=== PATIENT | male | born 1970 | race Caucasian/White ===

== ENCOUNTER → 2017-12-10 | Outpatient (CLI) | payer OTHER ==
--- NOTE | 2017-12-10 15:10 | US ---
EXAMINATION TYPE: US abdomen complete DATE OF EXAM: 12/10/2017 COMPARISON: NONE CLINICAL HISTORY: R10.9 Abdominal Pain. epigastric pain; larger habitus EXAM MEASUREMENTS: Liver Length: 17.4 cm Gallbladder Wall: 0.2 cm CBD: 0.4 cm Spleen: 12.5 cm Right Kidney: 13.0x x5.7 x 5.1 cm Left Kidney: 12.0 x 6.3 x 5.0 cm Pancreas: visualized portions wnl, tail gassed out Liver: upper limits in size Gallbladder: wnl Evidence for sonographic Urban's sign: no CBD: wnl Spleen: wnl Right Kidney: wnl Left Kidney: 1.9cm peripelvic cyst or pyramid at the mid to lower pole Upper IVC: wnl Abd Aorta: wnl The liver is homogenous. The intrahepatic portion of the IVC and proximal abdominal aorta are within normal limits. There is no evidence of cholelithiasis. Common bile duct is unremarkable. The visu alized portions of the pancreas are homogenous. The spleen is unremarkable. Kidneys are symmetric a nd free of hydronephrosis. IMPRESSION: Simple cyst left kidney. Otherwise unremarkable study.
== END | disposition home or self-care (01) ==
LOC: RADUSWWP 13:57
PROVIDERS: ATTEND Family Medicine
DX: N28.1 Cyst of kidney, acquired (principal)
CPT/HCPCS: 76700

== ENCOUNTER 2021-03-27 16:48 | Observation (INO) | payer OTHER ==
--- NOTE | 2021-03-27 17:01 | ED ---
General Adult HPI - General Chief complaint: Chest Pain Stated complaint: chest pain, rapid pulse Time Seen by Provider: 03/27/21 16:54 Source: patient Mode of arrival: ambulatory Limitations: no limitations - History of Present Illness Initial comments: Patient presents to the ED with his friend for evaluation. Patient states that he was about 2.5 hours into his workout today when he developed rapid heart palpitations, lightheadedness, dyspnea and nausea. Patient states that he has not worked out in about 7 months, and today was his first day back. Patient states that about 45 minutes ago, he developed a "squeezing" pain in the left side of his chest with some radiation to his left jaw. Patient states that this pain has currently improved, but has not completely resolved. Patient denies trauma or injury, fever or chills, headache, focal numbness/weakness/neuro deficit, back pain, pleuritic pain, cough or cold symptoms, syncope, vomitin g/diarrhea, abdominal pain, leg or calf swelling or pain, or any other symptoms or complaints. - Related Data Home Medications Medication Instructions Recorded Confirmed Ascorbic Acid [Vitamin C] 500 mg PO DAILY 03/27/21 03/27/21 Cholecalciferol [Vitamin D3 (25 25 mcg PO BID 03/27/21 03/27/21 Mcg = 1000 Iu)] Multivitamins, Thera [Multivitamin 1 tab PO BID 03/27/21 03/27/21 (formulary)] Zinc 50 mg PO BID 03/27/21 03/27/21 Allergies Allergy/AdvReac Type Severity Reaction Status Date / Time No Known Allergies Allergy Verified 03/27/21 18:56 Review of Systems ROS Statement: Those systems with pertinent positive or pertinent negative responses have been documented in the HPI. ROS Other: All systems not noted in ROS Statement are negative. Past Medical History Past Medical History: No Reported History History of Any Multi-Drug Resistant Organisms: None Reported Past Surgical History: Orthopedic Surgery Past Psychological History: No Psychological Hx Reported Smoking Status: Never smoker Past Alcohol Use History: None Reported Past Drug Use History: None Reported - Past Family History Father Family Medical History: Myocardial Infarction (MS) General Exam Limitations: no limitations General appearance: alert, in no apparent distress Head exam: Present: atraumatic, normocephalic Eye exam: Present: normal appearance, EOMI ENT exam: Present: mucous membranes moist Neck exam: Present: other (Trachea is in midline) Respiratory exam: Present: normal lung sounds bilaterally. Absent: respiratory distress, wheezes, rales, rhonchi, stridor, chest wall tenderness Cardiovascular Exam: Present: normal rhythm, tachycardia, normal heart sounds, other (Normal radial pulses bilaterally) GI/Abdominal exam: Present: soft, other (Obese abdomen). Absent: tenderness, guarding Extremities exam: Present: other (Negative Homans sign bilaterally). Absent: tenderness, pedal edema, calf tenderness Neurological exam: Present: alert, oriented X3. Absent: motor sensory deficit Psychiatric exam: Present: anxious Skin exam: Present: warm, dry, intact, normal color Course Vital Signs 03/27/21 03/27/21 16:49 18:04 Temperature 98.4 F Pulse Rate 102 H 93 Respiratory 20 18 Rate Blood Pressure 187/72 136/82 O2 Sat by Pulse 99 95 Oximetry - Reevaluation(s) Reevaluation #1: 03/27/21 18:26 Patient states that his chest pain has resolved while in the ED, and he states that his symptoms have now improved. Patient remains alert and breathing comfortably with a normal room air oxygen saturation. Patient remains in a sinus rhythm on the secured entrance monitor. Patient is aware of his test results, and he agrees with hospital admission at this time. 03/27/21 19:09 Case, H&P, test results and ED management were discussed with Dr. Mendez. She accepts hospital admission. She agrees with cardiology consultation. She has no further recommendations at this time. EKG Findings - EKG Comments: EKG Findings:: Normal sinus rhythm, ventricular rate of 98 bpm, no ectopy, normal UT and QRS intervals, normal QT interval, normal axis, no ST or T-wave abnormality Medical Decision Making - Medical Decision Making Patient's ED EKG is fairly unremarkable, and his initial troponin is negative. Given the patient's story (exertional chest pain with associated symptoms), and risk factors of obesity and family history of MS, I have recommended to the patient that he be admitted to the hospital for serial troponins, cardiac monitoring and cardiology evaluation. Patient agrees. Dr. Mendez has accepted hospital admission. - Lab Data Result diagrams: 03/27/21 17:30 03/27/21 17:30 Lab Results 03/27/21 03/27/21 03/27/21 Range/Units 17:30 17:30 17:30 WBC 12.3 H (3.8-10.6) k/uL RBC 4.77 (4.30-5.90) m/uL Hgb 15.7 (13.0-17.5) gm/dL Hct 45.2 (39.0-53.0) % MCV 94.7 (80.0-100.0) fL MCH 32.9 (25.0-35.0) pg MCHC 34.8 (31.0-37.0) g/dL RDW 12.5 (11.5-15.5) % Plt Count 260 (150-450) k/uL MPV 8.0 Neutrophils % 76 % Lymphocytes % 14 % Monocytes % 7 % Eosinophils % 0 % Basophils % 0 % Neutrophils # 9.4 H (1.3-7.7) k/uL Lymphocytes # 1.7 (1.0-4.8) k/uL Monocytes # 0.8 (0-1.0) k/uL Eosinophils # 0.0 (0-0.7) k/uL Basophils # 0.0 (0-0.2) k/uL PT 10.6 (9.0-12.0) sec INR 1.0 (<1.2) APTT 23.2 (22.0-30.0) sec Sodium 135 L (137-145) mmol/L Potassium 4.3 (3.5-5.1) mmol/L Chloride 104 (98-107) mmol/L Carbon Dioxide 18 L (22-30) mmol/L Anion Gap 13 mmol/L BUN 22 H (9-20) mg/dL Creatinine 1.17 (0.66-1.25) mg/dL Est GFR (CKD-EPI)AfAm 84 (>60 ml/min/1.73 sqM) Est GFR (CKD-EPI)NonAf 72 (>60 ml/min/1.73 sqM) Glucose 87 (74-99) mg/dL Calcium 9.8 (8.4-10.2) mg/dL Magnesium 1.9 (1.6-2.3) mg/dL Total Bilirubin 0.8 (0.2-1.3) mg/dL AST 44 (17-59) U/L ALT 34 (4-49) U/L Alkaline Phosphatase 64 (38-126) U/L Troponin I (0.000-0.034) ng/mL NT-Pro-B Natriuret Pep pg/mL Total Protein 7.9 (6.3-8.2) g/dL Albumin 4.8 (3.5-5.0) g/dL 03/27/21 03/27/21 Range/Units 17:30 17:30 WBC (3.8-10.6) k/uL RBC (4.30-5.90) m/uL Hgb (13.0-17.5) gm/dL Hct (39.0-53.0) % MCV (80.0-100.0) fL MCH (25.0-35.0) pg MCHC (31.0-37.0) g/dL RDW (11.5-15.5) % Plt Count (150-450) k/uL MPV Neutrophils % % Lymphocytes % % Monocytes % % Eosinophils % % Basophils % % Neutrophils # (1.3-7.7) k/uL Lymphocytes # (1.0-4.8) k/uL Monocytes # (0-1.0) k/uL Eosinophils # (0-0.7) k/uL Basophils # (0-0.2) k/uL PT (9.0-12.0) sec INR (<1.2) APTT (22.0-30.0) sec Sodium (137-145) mmol/L Potassium (3.5-5.1) mmol/L Chloride (98-107) mmol/L Carbon Dioxide (22-30) mmol/L Anion Gap mmol/L BUN (9-20) mg/dL Creatinine (0.66-1.25) mg/dL Est GFR (CKD-EPI)AfAm (>60 ml/min/1.73 sqM) Est GFR (CKD-EPI)NonAf (>60 ml/min/1.73 sqM) Glucose (74-99) mg/dL Calcium (8.4-10.2) mg/dL Magnesium (1.6-2.3) mg/dL Total Bilirubin (0.2-1.3) mg/dL AST (17-59) U/L ALT (4-49) U/L Alkaline Phosphatase (38-126) U/L Troponin I <0.012 (0.000-0.034) ng/mL NT-Pro-B Natriuret Pep 67 pg/mL Total Protein (6.3-8.2) g/dL Albumin (3.5-5.0) g/dL - Radiology Data Radiology results: report reviewed (Chest x-ray: No active cardiopulmonary disease) Disposition Clinical Impression: Chest pain, Palpitations Disposition: ADMITTED IP TO THIS [facility] Condition: Stable Is patient prescribed a controlled substance at d/c from ED?: No Referrals: Ankur Neely DO [Primary Care Provider] - 1-2 days Time of Disposition: 19:09
[2021-03-27] MEDS ORDERED: NITROGLYCERIN SL TABS 0.4 MG TAB SUBLINGUAL STA (17:21)
[2021-03-27] MEDS ORDERED: ASPIRIN 81 MG PO STA (17:21)
[2021-03-27] MEDS ORDERED: SODIUM CHLORIDE 0.9% 1,000 ML IV STA (17:21)
[2021-03-27 17:38] LABS: Basophils % (A) 0 %; Eosinophils % (A) 0 %; HCT 45.2 % (39.0-53.0); HGB 15.7 gm/dL (13.0-17.5); Lymphocytes # (A) 1.7 k/uL (1.0-4.8); Lymphocytes % (A) 14 %; MCH 32.9 pg (25.0-35.0); MCHC 34.8 g/dL (31.0-37.0); MCV 94.7 fL (80.0-100.0); Monocytes # (A) 0.8 k/uL (0-1.0); Monocytes % (A) 7 %; Neutrophils # (A) 9.4 k/uL (1.3-7.7); Neutrophils % (A) 76 %; Platelet Count 260 k/uL (150-450); RBC 4.77 m/uL (4.30-5.90); RDW 12.5 % (11.5-15.5); WBC 12.3 k/uL (3.8-10.6)
[2021-03-27 17:46] LABS: Albumin 4.8 g/dL (3.5-5.0); Calcium 9.8 mg/dL (8.4-10.2); Magnesium 1.9 mg/dL (1.6-2.3); Total Bilirubin 0.8 mg/dL (0.2-1.3); Total Protein 7.9 g/dL (6.3-8.2)
[2021-03-27 18:01] LABS: Potassium 4.3 mmol/L (3.5-5.1)
--- NOTE | 2021-03-27 18:03 | XR ---
EXAMINATION TYPE: XR chest 1V portable DATE OF EXAM: 03/27/2021 COMPARISON: Today HISTORY: Chest pain TECHNIQUE: Single view FINDINGS: Heart and mediastinum are normal. Lungs are clear of infiltrate. There is no heart failure. There are no hilar masses. The bony thorax is intact. There are chest leads. IMPRESSION: No active cardiopulmonary disease. No change compared to exam this morning.
[2021-03-27 18:04] LABS: Partial Thromboplastin Time 23.2 sec (22.0-30.0); Prothrombin Time 10.6 sec (9.0-12.0)
[2021-03-27] MEDS ORDERED: ALPRAZolam 0.25 MG TAB PO PRN (20:07)
[2021-03-27] MEDS ORDERED: ACETAMINOPHEN TAB 500 MG TAB PO PRN (20:07)
[2021-03-27] MEDS: MULTIVITAMINS, THERA 1 EACH TAB PO SCH (20:44)
[2021-03-27] MEDS: CHOLECALCIFEROL 25 MCG (1000 IU) TABLET PO SCH (20:44)
--- NOTE | 2021-03-27 21:47 | HP ---
HISTORY AND PHYSICAL DATE OF SERVICE: 03/27/2021 CHIEF COMPLAINT: Chest pain. HISTORY OF PRESENT ILLNESS: This 50-year-old gentleman with a past medical history of DJD and no other significant medical issues, being followed by Dr. Ankur Neely in the outpatient setting, had chest pain about 2 years ago. The patient had complete workup with Dr. Echevarria, which was negative, but however today the patient had episodes of short lasting left-sided jaw and facial pain. Subsequently followed by left-sided chest pain and the patient also had some rapid heartbeat and palpitations and dyspnea during the workout and the patient came to [facility] and was admitted to the hospital for further evaluation. Pain was reported as squeezing. EKG showed tachycardia. White count is 12.3, sodium is 135. Otherwise, there is no history of fever, rigors. No history of headache, loss of consciousness, seizures. EKG showed sinus tachycardia with ST-T changes and diffuse nonspecific ST-T changes and chest x-ray showed no acute abnormality. There is no history of fever, rigors, chills at this time. PAST MEDICAL HISTORY: History of chest pain and degenerative joint disease as mentioned earlier. MEDICATIONS: Home medications are: Multivitamin, vitamin D and ascorbic acid. ALLERGIES: None. FAMILY HISTORY: History of myocardial infarction in the family. SOCIAL HISTORY: No history of smoking, no history of alcohol intake. REVIEW OF SYSTEMS: ENT: No diminished vision. No diminished hearing. CARDIOVASCULAR as mentioned earlier. RESPIRATORY: As mentioned earlier. GI: No nausea or vomiting. no dysuria. NERVOUS SYSTEM: No numbness, weakness. ALLERGY/IMMUNOLOGY: No asthma or hayfever. MUSCULOSKELETAL: As mentioned earlier. HEMATOLOGY/ONCOLOGY: No history of anemia. ENDOCRINE: No history of diabetes or hypothyroidism. CONSTITUTIONAL: As mentioned earlier. DERMATOLOGY: Negative. RHEUMATOLOGY: Negative. PSYCHIATRIC: As mentioned earlier. PHYSICAL EXAM: General appearance: The patient is alert and oriented times three. Pulse 102, blood pressure 197/72, respirations 20, temperature 98.4, pulse ox 99 percent on room air. HEENT: Conjunctivae normal. NECK: No JVD. CARDIOVASCULAR: S1, S2 muffled. RESPIRATORY: Breath sounds diminished in the bases. No rhonchi. No crackles. ABDOMEN: Soft, obese, nontender. No mass palpable. LEGS: No edema. No swelling. NERVOUS SYSTEM: Higher functions as mentioned. Moves all four extremities. LYMPHATICS: No lymph nodes palpable in the neck, axillae or groin. SKIN: No ulcers, rashes or bleeding. JOINTS: No active deforming arthropathy. LABS: WBC 12.3 and sodium 130, potassium 4.3. ASSESSMENT: 1. Chest pain for evaluation possible unstable angina. Rule out coronary artery disease. 2. Hyponatremia, mild. 3. Increased WBC. 4. History of chest pain, previous. 5. History of degenerative joint disease. 6. Obesity with body mass of 42.5. 7. FULL CODE. RECOMMENDATIONS AND DISCUSSION: This 50-year-old gentleman who presented with multiple complex medical issues, we will monitor the patient closely, continue the current medications. Covid 19 test has been requested. Otherwise, resume the home medications and cardiology consult to rule out myocardial infarction. Unstable angina protocol. Possible stress test in the morning. Prognosis guarded. Further recommendations to follow. A copy of dictation being forwarded to Dr. Ankur Neely, who is the primary physician. MMYIMIL / IJN: [id number] /
[2021-03-27] MEDS: ZINC SULFATE 220 MG CAP PO SCH (21:51)
[2021-03-27 22:48] LABS: Appearance,Urine Clear (Clear); Bilirubin,Urine Negative (Negative); Blood,Urine Negative (Negative); Color,Urine Light Yellow; Glucose,Urine (UA) Negative (Negative); Ketones,Urine 2+ (Negative); Leukocyte Esterase,Urine Negative (Negative); Nitrite,Urine Negative (Negative); Protein,Urine Negative (Negative); Specific Gravity,Urine 1.013 (1.001-1.035); Urobilinogen,Urine <2.0 mg/dL (<2.0)
[2021-03-28 06:50] VITALS: BP 137/86; PULSE 69; RESP 20; TEMP 97.9
[2021-03-28] MEDS ORDERED: PANTOPRAZOLE 40 MG TABLET PO SCH (07:30)
[2021-03-28] MEDS ORDERED: ASCORBIC ACID 500 MG TAB PO SCH (09:00)
[2021-03-28 09:10] LABS: Basophils # (A) 0.03 X 10*3/uL (0.00-0.10); Basophils % (A) 0.3 %; Eosinophils # (A) 0.07 X 10*3/uL (0.04-0.35); Eosinophils % (A) 0.7 %; HCT 43.1 % (39.6-50.0); Lymphocytes # (A) 2.82 X 10*3/uL (0.90-5.00); Lymphocytes % (A) 29.1 %; MCH 31.4 pg (27.0-32.0); MCHC 32.5 g/dL (32.0-37.0); MCV 96.6 fL (80.0-97.0); Mean Platelet Volume 10.7 fL (9.5-12.2); Monocytes # (A) 1.19 X 10*3/uL (0.20-1.00); Monocytes % (A) 12.3 %; Neutrophils # (A) 5.55 X 10*3/uL (1.80-7.70); Neutrophils % (A) 57.3 %; Platelet Count 232 X 10*3/uL (140-440); RBC 4.46 X 10*6/uL (4.40-5.60); RDW 12.5 % (11.5-14.5); WBC 9.69 X 10*3/uL (4.50-10.00)
[2021-03-28] MEDS: ZINC SULFATE 220 MG CAP PO SCH (09:14)
[2021-03-28] MEDS: MULTIVITAMINS, THERA 1 EACH TAB PO SCH (09:14)
[2021-03-28] MEDS: CHOLECALCIFEROL 25 MCG (1000 IU) TABLET PO SCH (09:14)
[2021-03-28 10:10] LABS: Albumin 4.4 g/dL (3.80-4.90); Anion Gap 12.6 mmol/L (4.00-12.00); BUN/Creat Ratio 18.89 Ratio (12.00-20.00); Calcium 8.8 mg/dL (8.7-10.3); Carbon Dioxide 19.4 mmol/L (21.6-31.8); Chol/HDL Ratio 4.77; Globulin 2.2 g/dL (1.6-3.3); LDL Cholesterol,Calculated 138.6 mg/dL (0.0-131.0); Non-African American GFR(CKD) 99.2 (60.0-200.0); Total Bilirubin 0.5 mg/dL (0.3-1.2); Total Protein 6.6 g/dL (6.2-8.2); VLDL Calculation 27.4 mg/dL (5.00-40.00)
[2021-03-28] MEDS: ATORVASTATIN 10 MG TAB PO SCH ×2 (12:24→12:41)
--- NOTE | 2021-03-28 13:10 | CONS ---
CONSULTATION Mr. Belle is a 50-year-old male with history of hyperlipidemia, who presented with symptoms of chest discomfort. The patient has been walking regularly without any discomfort. He has no exertional chest discomfort or dyspnea, but yesterday he was lifting weight for the first time in a year and has gone to the gym. Subsequently felt that his heart rate is going too fast and has persisted to be tachycardic, had chest discomfort going to the jaw. The jaw pain lasted for about 30 seconds, the chest pain for about 45 seconds and subsequently resolved. He had mild dyspnea. It took a while for his heart rate to settle down. He had no associated syncope. He has been doing well cardiac-ortez since his last visit to our office in September of 2019. He has underwent a stress echocardiogram at that time that revealed no evidence of stress- induced ischemia. The patient denies any PND, orthopnea, or peripheral edema. No syncope. His coronary risk factors are remarkable for hyperlipidemia. He is nonsmoker, nondiabetic. MEDICATIONS: Include zinc, multivitamin, vitamin D, and vitamin C. REVIEW OF SYSTEMS: Respiratory system: He has no documented history of asthma, emphysema or bronchitis. GI system: No recent GI bleeding, no peptic ulcer disease. system: No dysuria or hematuria. NERVOUS SYSTEM: No stroke or seizure. PHYSICAL EXAMINATION: He is a 50-year-old male, alert, oriented, in no apparent distress. Blood pressure 137/80 with a heart rate in the 60s. HEAD: Normocephalic. Eyes sclerae anicteric. NECK: Good carotid upstroke. No bruit. No jugular venous distention. LUNGS: Clear to auscultation. HEART: Regular rate and rhythm S1, S2. No S3. No S4. No murmur or rub. ABDOMEN: Soft. Nontender. Positive bowel sounds. No megaly. EXTREMITIES: No edema. Intact distal pulses. LAB DATA: Hemoglobin 15.7, platelet count 260. BUN and creatinine 22 and 1.17. Troponin less than 0.012 for 3 samples. NT proBNP of 67. EKG revealed a sinus mechanism, normal axis and intervals with no acute ST-segment changes. Chest x-ray shows no acute infiltrate. IMPRESSION: 1. Chest discomfort, atypical for ischemic heart disease probably noncardiac. 2. Episode of tachycardia, most likely related to the exercise the patient has done yesterday and he has not been doing that routinely. 3. History of hyperlipidemia. Patient declined lipid-lowering treatment in the past. RECOMMENDATION: From the cardiac standpoint, I will proceed in obtaining a stress echocardiogram and a transthoracic echo. If there is no evidence of abnormality, then no further cardiac workup will be needed. Thank you for this consult. We will follow with you. CURT / SKYLER: [id number] /
--- NOTE | 2021-03-28 14:20 | ECHOS ---
STRESS ECHOCARDIOGRAM DATE OF SERVICE: 03/28/21 INDICATIONS: Chest pain BASELINE HEART RATE: 85 BASELINE BLOOD PRESSURE: 135/91 MAXIMUM HEART RATE: 163 MAXIMUM BLOOD PRESSURE: 185/62 85% MPHR: 145 100% MPHR: 170 METS: 4.09 MAXIMUM STAGE REACHED: III TOTAL EXERCISE TIME: 7:49 CLINICAL INFORMATION: Chest pain RESULTS: Baseline rhythm is sinus mechanism, rate of 85, normal axis. Poor R wave progression. Baseline blood pressure 135/91 mmHg. Patient exercised on Poli protocol for 7 minutes 49 seconds reaching peak rate 163 beats per minute which is equal to 96% maximum predicted heart rate. Peak blood pressure 162/55 mmHg. Test was terminated because of fatigue. There was no chest pain. Electrocardiograph monitoring revealed no evidence of diagnostic ischemic ST deviation. FINDINGS: Baseline echocardiogram revealed normal wall thickening and motion. At peak exercise, there was normal wall motion augmentation with no hypokinesis or dyskinesis. CONCLUSION: 1. Average exercise tolerance with normal echocardiograph response to exercise. 2. Normal stress echocardiogram with no evidence of stress-induced ischemia. MMODL / IJN: [id number] /
--- NOTE | 2021-03-29 13:54 | P.DS ---
Providers Date of admission: 03/27/21 19:15 Expected date of discharge: 03/28/21 Attending physician: Gloria Mendez MD Consults: 03/27/21 19:16 Consult Physician Urgent Consulting Provider: Gonzales Eagle Consult Reason/Comments: chest pain Do you want consulting provider notified?: Yes Primary care physician: Ankur Neely [facility] Course: Final diagnosis Chest pain for evaluation possible unstable angina, ruled out acute coronary event Hyponatremia, mild Increased white blood count history of chest pain, previous history of degenerative joint disease Obesity with body mass index of 42.5 Full code Discharge disposition Patient is being discharged in a stable condition with guarded prognosis to home. Patient will follow-up with Dr. Tamara Neely upon discharge. Patient will follow-up with cardiology outpatient. Patient will continue on Lipitor 10 mg daily and Protonix daily as well. Total time taken is greater than 35 minutes. Hospital course This is a 50-year-old male who was recently admitted with left-sided jaw and facial pain and subsequent left side chest pain and was being closely monitored. Patient was evaluated by cardiology and underwent stress echo showing an average exercise tolerance with normal echocardiographic response to exercise along with normal stress echocardiogram with no evidence of stressed induced ischemia. Patient was started on Lipitor 10 mg and will continue along with Protonix 40 mg daily and instructed to follow-up with primary care provider Dr. Tamara Neely in the outpatient setting upon discharge. Currently no reports of chest pain, shortness of breath, or palpitations. Patient is afebrile. No reports of nausea or vomiting and patient is tolerating diet. On exam vital signs are stable. Cardio S1, S2 are muffled. Respiratory shows diminished breath sounds at the bases with no wheezing or rhonchi noted. Abdomen is soft and nontender. Nervous system shows no focal deficits. Please refer to medication reconciliation sheet for a list of medications. Patient Condition at Discharge: Stable Plan - Discharge Summary Discharge Rx Participant: No New Discharge Prescriptions: New Pantoprazole [Protonix] 40 mg PO AC-BRKFST #30 tab Atorvastatin [Lipitor] 10 mg PO DAILY #30 tab Continue Zinc 50 mg PO BID Cholecalciferol [Vitamin D3 (25 Mcg = 1000 Iu)] 25 mcg PO BID Ascorbic Acid [Vitamin C] 500 mg PO DAILY Multivitamins, Thera [Multivitamin (formulary)] 1 tab PO BID Discharge Medication List Ascorbic Acid [Vitamin C] 500 mg PO DAILY 03/27/21 [History] Cholecalciferol [Vitamin D3 (25 Mcg = 1000 Iu)] 25 mcg PO BID 03/27/21 [History] Multivitamins, Thera [Multivitamin (formulary)] 1 tab PO BID 03/27/21 [History] Zinc 50 mg PO BID 03/27/21 [History] Atorvastatin [Lipitor] 10 mg PO DAILY #30 tab 03/28/21 [Rx] Pantoprazole [Protonix] 40 mg PO AC-BRKFST #30 tab 03/28/21 [Rx] Follow up Appointment(s)/Referral(s): Ankur Neely DO [Primary Care Provider] - 1-2 days Patient Instructions/Handouts: Cardiac Stress Test (DC) Activity/Diet/Wound Care/Special Instructions: Activity Limited until follow-up Follow-up with primary care provider on discharge Continue taking medications as prescribed Follow heart healthy low-cholesterol diet Discharge Disposition: HOME SELF-CARE
--- NOTE | 2021-03-29 15:56 | ECHOF ---
Referral Reason: MEASUREMENTS -------- HEIGHT: 180.3 cm WEIGHT: 138.3 kg BP: RVIDd: 2.8 cm (< 3.3) IVSd: 1.0 cm (0.6 - 1.1) LVIDd: 4.9 cm (3.9 - 5.3) LVPWd: 1.4 cm (0.6 - 1.1) IVSs: 2.1 cm LVIDs: 2.7 cm LVPWs: 1.7 cm LAESV Index (A-L): 16.03 ml/m Ao Diam: 3.6 cm (2.0 - 3.7) AV Cusp: 2.5 cm (1.5 - 2.6) LA Diam: 2.7 cm (2.7 - 3.8) MV EXCURSION: 16.594 mm (> 18.000) MV EF SLOPE: 126 mm/s (70 - 150) EPSS: 0.6 cm MV E Reggie: 0.81 m/s MV DecT: 181 ms MV A Reggie: 0.42 m/s MV E/A Ratio: 1.96 RAP: 5.00 mmHg RVSP: 17.74 mmHg FINDINGS -------- Sinus rhythm. This was a technically adequate study. The left ventricular size is normal. There is mild concentric left ventricular hypertrophy. Overa ll left ventricular systolic function is normal with, an EF between 55 - 60 %. The diastolic fillin g pattern is normal for the age of the patient 12.57. The right ventricle is normal in size. Normal LA size by volume 22+/-6 ml/m2. The right atrial size is normal. The aortic valve is trileaflet, and appears structurally normal. No aortic stenosis or regurgitation. The mitral valve is normal. There is trace mitral regurgitation. The tricuspid valve appears structurally normal. Mild tricuspid regurgitation present. Right vent ricular systolic pressure is normal at < 35 mmHg. The pulmonic valve was not well visualized. The aortic root size is normal. The inferior vena cava is mildly dilated. There is no pericardial effusion. CONCLUSIONS -------- 1. There is mild concentric left ventricular hypertrophy. 2. Overall left ventricular systolic function is normal with, an EF between 55 - 60 %. 3. The diastolic filling pattern is normal for the age of the patient 12.57 4. Normal LA size by volume 22+/-6 ml/m2. 5. There is trace mitral regurgitation. 6. Mild tricuspid regurgitation present. 7. There is no pericardial effusion. PEST MANAGEMENT SUPERVISOR: Kaitlin Da Silva RDCS
== END 2021-03-28 14:23 | disposition home or self-care (01) ==
LOC: EC 16:48 → 6NMEDSUR 19:15
PROVIDERS: ADMIT Internal Medicine; ATTEND Internal Medicine
DX: R07.89 Other chest pain (principal); R00.2 Palpitations; R06.00 Dyspnea, unspecified; R68.84 Jaw pain; Z20.822 Contact with and (suspected) exposure to COVID-19; E78.5 Hyperlipidemia, unspecified; R51.9 Headache, unspecified; E87.1 Hypo-osmolality and hyponatremia; D72.829 Elevated white blood cell count, unspecified; M19.90 Unspecified osteoarthritis, unspecified site; E66.9 Obesity, unspecified; Z68.41 Body mass index [BMI] 40.0-44.9, adult; Z82.49 Family history of ischemic heart disease and other diseases of the circulatory system
CPT/HCPCS: 96361 ×2; 96360; 99285; 36415; 93005; 93306; 93351; 83880; 80061; 80053 ×2; 83735; 84484; 85025 ×2; 85610; 85730; 81003; 87635; 71045; G0378 ×2

== ENCOUNTER 2021-08-28 07:18 | Observation (INO) | payer BC, OTHER ==
[2021-08-28] MEDS ORDERED: SODIUM CHLORIDE 0.9% 500 ML 500 ML IV ONE (07:44)
[2021-08-28 07:49] LABS: Glucose,Whole Blood 114 mg/dL (75-99)
[2021-08-28 07:54] LABS: Basophils % (A) 0 %; Eosinophils # (A) 0.2 k/uL (0-0.7); Eosinophils % (A) 2 %; HCT 48.6 % (39.0-53.0); HGB 15.9 gm/dL (13.0-17.5); Lymphocytes # (A) 1.5 k/uL (1.0-4.8); Lymphocytes % (A) 10 %; MCH 32.2 pg (25.0-35.0); MCHC 32.8 g/dL (31.0-37.0); MCV 98.3 fL (80.0-100.0); Mean Platelet Volume 7.8; Monocytes # (A) 0.8 k/uL (0-1.0); Monocytes % (A) 6 %; Neutrophils # (A) 11.5 k/uL (1.3-7.7); Neutrophils % (A) 81 %; Platelet Count 247 k/uL (150-450); RBC 4.95 m/uL (4.30-5.90); RDW 12.2 % (11.5-15.5); WBC 14.3 k/uL (3.8-10.6)
--- NOTE | 2021-08-28 08:02 | ED ---
General Adult HPI - General Chief complaint: Syncope Stated complaint: Syncope Time Seen by Provider: 08/28/21 07:30 Source: patient, RN notes reviewed, old records reviewed Mode of arrival: wheelchair Limitations: no limitations - History of Present Illness Initial comments: 51-year-old male presenting after syncopal episode. Patient states he was in the bathroom, using the toilet, began feeling lightheaded followed by nausea and diaphoresis. He stood and passed out momentarily. He states that yesterday evening he did have a moderate frontal headache which she describes as a tension headache. This was gradual in onset. He denies any preceding symptoms otherwise. Patient states he did have a left lateral chest pressure, During this episode. - Related Data Home Medications Medication Instructions Recorded Confirmed Ascorbic Acid [Vitamin C] 1,000 mg PO BID 03/27/21 08/28/21 Cholecalciferol [Vitamin D3 (25 25 mcg PO BID 03/27/21 08/28/21 Mcg = 1000 Iu)] Multivitamins, Thera [Multivitamin 1 tab PO BID 03/27/21 08/28/21 (formulary)] Zinc 50 mg PO BID 03/27/21 08/28/21 Aspirin EC [Ecotrin] 650 mg PO ONCE PRN 08/28/21 08/28/21 Allergies Allergy/AdvReac Type Severity Reaction Status Date / Time No Known Allergies Allergy Verified 08/28/21 08:37 Review of Systems ROS Statement: Those systems with pertinent positive or pertinent negative responses have been documented in the HPI. ROS Other: All systems not noted in ROS Statement are negative. Past Medical History Past Medical History: No Reported History History of Any Multi-Drug Resistant Organisms: None Reported Past Surgical History: Orthopedic Surgery Additional Past Anesthesia/Blood Transfusion Reaction / Comment(s): unknown Past Psychological History: No Psychological Hx Reported Smoking Status: Never smoker Past Alcohol Use History: None Reported Past Drug Use History: None Reported - Past Family History Father Family Medical History: Myocardial Infarction ([place]) General Exam Limitations: no limitations General appearance: alert, in no apparent distress Head exam: Present: atraumatic, normocephalic Eye exam: Present: normal appearance, PERRL ENT exam: Present: mucous membranes dry Neck exam: Present: normal inspection. Absent: tenderness, meningismus Respiratory exam: Present: normal lung sounds bilaterally. Absent: respiratory distress, wheezes Cardiovascular Exam: Present: regular rate, normal rhythm GI/Abdominal exam: Present: soft. Absent: distended, tenderness, guarding Extremities exam: Present: normal inspection, normal capillary refill. Absent: pedal edema Neurological exam: Present: alert, oriented X3, CN II-XII intact. Absent: motor sensory deficit Psychiatric exam: Present: normal affect, normal mood Skin exam: Present: warm, dry, intact. Absent: cyanosis, diaphoretic Course Vital Signs 08/28/21 08/28/21 07:29 07:51 Temperature 98.2 F Pulse Rate 77 72 Respiratory 18 18 Rate Blood Pressure 106/66 111/75 O2 Sat by Pulse 98 96 Oximetry EKG Findings - EKG Comments: EKG Findings:: Sinus rhythm, rate 67, nonspecific T-wave abnormality in aVL and V2. No ST segment elevation. IN interval 194, QRS duration 100, QTC 401 Medical Decision Making - Medical Decision Making 51-year-old male presenting for evaluation of syncope, and left lateral chest pressure. Patient had moderate headache yesterday. Head CT was performed this is negative for intracranial hemorrhage or mass effect. Chest x-ray will show mild cardiomegaly no other acute findings. Patient has a leukocytosis 14.3, no other infectious complaints. D-dimer is negative. Initial troponin is negative. Patient does have some subtle EKG changes including T-wave inversion in aVL and T-wave abnormality in V2. No ST segment changes. He will be observed overnight for possible syncopal episode and this episode of chest pressure. Case discussed with Dr. Mendez who will admit. Cardiology placed on consult. - Lab Data Result diagrams: 08/28/21 07:35 08/28/21 07:35 Lab Results 08/28/21 08/28/21 08/28/21 Range/Units 07:35 07:35 07:35 WBC 14.3 H (3.8-10.6) k/uL RBC 4.95 (4.30-5.90) m/uL Hgb 15.9 (13.0-17.5) gm/dL Hct 48.6 (39.0-53.0) % MCV 98.3 (80.0-100.0) fL MCH 32.2 (25.0-35.0) pg MCHC 32.8 (31.0-37.0) g/dL RDW 12.2 (11.5-15.5) % Plt Count 247 (150-450) k/uL MPV 7.8 Neutrophils % 81 % Lymphocytes % 10 % Monocytes % 6 % Eosinophils % 2 % Basophils % 0 % Neutrophils # 11.5 H (1.3-7.7) k/uL Lymphocytes # 1.5 (1.0-4.8) k/uL Monocytes # 0.8 (0-1.0) k/uL Eosinophils # 0.2 (0-0.7) k/uL Basophils # 0.0 (0-0.2) k/uL PT 10.4 (9.0-12.0) sec INR 0.9 (<1.2) APTT 22.4 (22.0-30.0) sec D-Dimer 0.30 (<0.60) mg/L FEU Sodium 139 (137-145) mmol/L Potassium 5.0 (3.5-5.1) mmol/L Chloride 107 (98-107) mmol/L Carbon Dioxide 22 (22-30) mmol/L Anion Gap 10 mmol/L BUN 19 (9-20) mg/dL Creatinine 0.98 (0.66-1.25) mg/dL Est GFR (CKD-EPI)AfAm >90 (>60 ml/min/1.73 sqM) Est GFR (CKD-EPI)NonAf 90 (>60 ml/min/1.73 sqM) Glucose 115 H (74-99) mg/dL POC Glucose (mg/dL) (75-99) mg/dL POC Glu Roller Embosser ID Calcium 9.2 (8.4-10.2) mg/dL Magnesium 2.0 (1.6-2.3) mg/dL Total Bilirubin 0.9 (0.2-1.3) mg/dL AST 35 (17-59) U/L ALT 25 (4-49) U/L Alkaline Phosphatase 66 (38-126) U/L Troponin I (0.000-0.034) ng/mL Total Protein 7.7 (6.3-8.2) g/dL Albumin 4.5 (3.5-5.0) g/dL Coronavirus (PCR) (Not Detectd) 02/20/22 02/20/22 02/20/22 Range/Units 07:35 07:37 07:44 WBC (3.8-10.6) k/uL RBC (4.30-5.90) m/uL Hgb (13.0-17.5) gm/dL Hct (39.0-53.0) % MCV (80.0-100.0) fL MCH (25.0-35.0) pg MCHC (31.0-37.0) g/dL RDW (11.5-15.5) % Plt Count (150-450) k/uL MPV Neutrophils % % Lymphocytes % % Monocytes % % Eosinophils % % Basophils % % Neutrophils # (1.3-7.7) k/uL Lymphocytes # (1.0-4.8) k/uL Monocytes # (0-1.0) k/uL Eosinophils # (0-0.7) k/uL Basophils # (0-0.2) k/uL PT (9.0-12.0) sec INR (<1.2) APTT (22.0-30.0) sec D-Dimer (<0.60) mg/L FEU Sodium (137-145) mmol/L Potassium (3.5-5.1) mmol/L Chloride (98-107) mmol/L Carbon Dioxide (22-30) mmol/L Anion Gap mmol/L BUN (9-20) mg/dL Creatinine (0.66-1.25) mg/dL Est GFR (CKD-EPI)AfAm (>60 ml/min/1.73 sqM) Est GFR (CKD-EPI)NonAf (>60 ml/min/1.73 sqM) Glucose (74-99) mg/dL POC Glucose (mg/dL) 114 H (75-99) mg/dL POC Glu Roller Embosser ID Woo, Avelina Calcium (8.4-10.2) mg/dL Magnesium (1.6-2.3) mg/dL Total Bilirubin (0.2-1.3) mg/dL AST (17-59) U/L ALT (4-49) U/L Alkaline Phosphatase (38-126) U/L Troponin I 0.014 (0.000-0.034) ng/mL Total Protein (6.3-8.2) g/dL Albumin (3.5-5.0) g/dL Coronavirus (PCR) Not Detected (Not Detectd) Disposition Clinical Impression: Chest pain, Syncope Disposition: ADMITTED IP TO THIS HOSP Condition: Stable Is patient prescribed a controlled substance at d/c from ED?: No Decision to Admit Reason: Admit from EC Decision Date: 08/28/21 Decision Time: 08:49
[2021-08-28 08:05] LABS: ALT 25 U/L (4-49); AST 35 U/L (17-59); African American GFR (CKD) >90 (>60 ml/min/1.73 sqM); Albumin 4.5 g/dL (3.5-5.0); Alkaline Phosphatase 66 U/L (38-126); Anion Gap 10 mmol/L; Blood Urea Nitrogen 19 mg/dL (9-20); Calcium 9.2 mg/dL (8.4-10.2); Carbon Dioxide 22 mmol/L (22-30); Chloride 107 mmol/L (98-107); Glucose 115 mg/dL (74-99); Non-African American GFR(CKD) 90 (>60 ml/min/1.73 sqM); Sodium 139 mmol/L (137-145); Total Bilirubin 0.9 mg/dL (0.2-1.3); Total Protein 7.7 g/dL (6.3-8.2)
--- NOTE | 2021-08-28 08:06 | CT ---
EXAMINATION TYPE: CT brain wo con DATE OF EXAM: 08/28/2021 COMPARISON: None HISTORY: 51-year-old male syncope, ROBBINS TECHNIQUE: Examination was done in axial plane without intravenous contrast. Coronal and sagittal r econstructions performed. CT DLP: 1173.4 mGycm Automated exposure control for dose reduction was used. FINDINGS: There is no evidence of acute intracranial hemorrhage, acute ischemic changes, mass, mass-effect, or extra-axial fluid collection. There is no effacement of cerebral sulci or basal subarachnoid cister ns. There is no hydrocephalus. There is no midline shift. Gilliam-white matter distinction is preserv ed. Partially empty sella. 3 mm of benign cerebellar tonsillar ectopia incidentally noted. Moderate mucosal thickening ethmoid air cells. Mild lobulated mucosal thickening left maxillary sinus . Leftward nasal septal deviation. Orbits and globes appear intact. Mastoid air cells are well pneuma tized. IMPRESSION: No acute intracranial abnormality seen. Moderate chronic ethmoid sinus disease.
[2021-08-28 08:12] LABS: INR 0.9 (<1.2); Partial Thromboplastin Time 22.4 sec (22.0-30.0); Prothrombin Time 10.4 sec (9.0-12.0)
--- NOTE | 2021-08-28 08:13 | XR ---
EXAMINATION TYPE: XR chest 2V DATE OF EXAM: 08/28/2021 COMPARISON: 03/27/2021 HISTORY: 51-year-old male syncope TECHNIQUE: PA and lateral views FINDINGS: Heart borderline enlarged. No consolidation or pleural effusion. Bony vasculature within normal limit s. IMPRESSION: Borderline heart size. Otherwise, no acute process seen.
[2021-08-28] MEDS ORDERED: ASPIRIN 325 MG TAB PO STA (08:40)
[2021-08-28] MEDS ORDERED: ONDANSETRON 4 MG/2 ML VIAL IVP PRN (08:43)
[2021-08-28] MEDS ORDERED: ACETAMINOPHEN TAB 325 MG TAB PO PRN (08:43)
[2021-08-28] MEDS ORDERED: NALOXONE 0.4 MG/ML 1 ML VIAL IV PRN (08:43)
[2021-08-28] MEDS: SODIUM CHLORIDE 0.9% 1,000 ML IV SCH ×2 (09:26→22:59)
--- NOTE | 2021-08-28 10:43 | P.HPIM ---
History of Present Illness This is a pleasant 51 years old male with no significant past medical history. Presents with syncope./Presyncope Patient has some tension headache behind his height last night and he took aspirin which helped him to ease down however in the morning he was going to the restroom he felt hot and nausea and while she was trying get up from the chair he felt nauseated, sweating and his eye blacked out but he still could hear voices, next thing he was on the floor with difficulty getting up for about 5-8 minutes as patient describes. Also he had some little chest pressure on the left side which is resolved now. He denies any diarrhea or vomiting or abdominal pain, no weakness or numbness, no vertigo, no blurred vision or slurred speech. No dysuria or urgency or other urinary abnormality. He denies smoking, alcohol or illicit drugs. Labs showing mild leukocytosis of 14.3, rest of labs including CBC, BMP and liver enzymes are unremarkable. D-dimer normal at 0.3. Glucose is elevated 115, Liver enzymes not elevated Coronavirus nondetected. EKG showing normal sinus rhythm at 67 with QTC of [address]-T changes, Chest x-ray: No acute process. CT of the brain: No acute process In the emergency room patient started on normal saline 75 mL/h and he got aspirin 325 mg. Patient admitted with consult the cardiology Past Medical History Past Medical History: No Reported History History of Any Multi-Drug Resistant Organisms: None Reported Past Surgical History: Orthopedic Surgery Additional Past Anesthesia/Blood Transfusion Reaction / Comment(s): unknown Past Psychological History: No Psychological Hx Reported Smoking Status: Never smoker Past Alcohol Use History: None Reported Past Drug Use History: None Reported - Past Family History Father Family Medical History: Myocardial Infarction ([place]) Medications and Allergies Home Medications Medication Instructions Recorded Confirmed Type Ascorbic Acid [Vitamin C] 1,000 mg PO BID 03/27/21 08/28/21 History Cholecalciferol [Vitamin D3 (25 25 mcg PO BID 03/27/21 08/28/21 History Mcg = 1000 Iu)] Multivitamins, Thera [Multivitamin 1 tab PO BID 03/27/21 08/28/21 History (formulary)] Zinc 50 mg PO BID 03/27/21 08/28/21 History Aspirin EC [Ecotrin] 650 mg PO ONCE PRN 08/28/21 08/28/21 History Allergies Allergy/AdvReac Type Severity Reaction Status Date / Time No Known Allergies Allergy Verified 08/28/21 08:37 Physical Exam Vitals: Vital Signs Temp Pulse Pulse Resp BP BP Pulse Ox 08/28/21 09:50 97.6 F 78 18 115/70 97 08/28/21 09:27 97.8 F 77 18 112/61 97 08/28/21 07:51 72 18 111/75 96 08/28/21 07:29 98.2 F 77 18 106/66 98 Intake and Output 08/27/21 08/28/21 08/28/21 22:59 06:59 14:59 Other: Weight 140.614 kg Results CBC & Chem 7: 08/28/21 07:35 08/28/21 07:35 Labs: Abnormal Lab Results - Last 24 Hours (Table) 08/28/21 08/28/21 08/28/21 Range/Units 07:35 07:35 07:37 WBC 14.3 H (3.8-10.6) k/uL Neutrophils # 11.5 H (1.3-7.7) k/uL Glucose 115 H (74-99) mg/dL POC Glucose (mg/dL) 114 H (75-99) mg/dL Thrombosis Risk Factor Assmnt - Choose All That Apply Any of the Below Risk Factors Present?: Yes Each Factor Represents 1 point: Age 41-60 years Other Risk Factors: No Thrombosis Risk Factor Assessment Total Risk Factor Score: 1 Thrombosis Risk Factor Assessment Level: Low Risk Assessment and Plan Assessment: Syncope/presyncope, most likely vasovagal, rule out cardiac causes Mild chest pressure Mild leukocytosis, most likely reactive with no evidence of infection Mildly elevated glucose, check hemoglobin A1c Plan: This is a pleasant 51 resolved male who presents with syncope/presyncope It with serial troponin, telemetry and cardiology consult Check orthostatic vitals Check urine analysis Check hemoglobin A1c Labs and medication were reviewed.. Continue same treatment. Continue with symptomatic treatment. Resume home medication. Monitor lytes and vitals. DVT and GI prophylaxis. Further recommendationsas per clinical course of the patient DVT prophylaxis: Subcutaneous heparin GI Prophylaxis: Pepcid Prognosis is guarded
[2021-08-28 11:33] LABS: HCT 50.7 % (39.0-53.0); HGB 16.5 gm/dL (13.0-17.5); MCH 32.7 pg (25.0-35.0); MCHC 32.6 g/dL (31.0-37.0); MCV 100.1 fL (80.0-100.0); Mean Platelet Volume 7.7; Platelet Count 212 k/uL (150-450); RBC 5.06 m/uL (4.30-5.90); RDW 12.9 % (11.5-15.5); WBC 11.9 k/uL (3.8-10.6)
--- NOTE | 2021-08-28 12:32 | P.CRDCN ---
History of Present Illness Consult date: 08/28/21 History of present illness: This is a 51-year-old male with no significant past medical history is admitted to the hospital with an episode of dizziness and a fall at home.. There might of been loss of consciousness. Patient apparently had frontal headache and took couple of aspirins few hours before this event. When he woke up he felt he was very warm. Subsequently went to the bathroom and had some nausea and rapid heartbeat. He checked his pulse and seemed to be very irregular. Then he became cold and sweaty. After using the bathroom. Patient was walking outside and fell lightheaded and fell to the floor. He did not feel well for 5-6 minutes and subsequently was able to get up. His daughter suggested him to go to the hospital to rule out any TIA or stroke. Since coming to the hospital, he has been feeling better. His EKG did not reveal any acute changes. His troponin values are within normal limits. In March of this year, patient was admitted to the hospital with chest pain. He had an echocardiogram and stress echo which were normal. Patient at this point wants to go home. Blood pressure did not show any postural changes.IF he patient insist on going home, patient could be discharged home with event monitor. Follow-up in the office Review of Systems as per the chart Past Medical History Past Medical History: No Reported History History of Any Multi-Drug Resistant Organisms: None Reported Past Surgical History: Orthopedic Surgery Additional Past Anesthesia/Blood Transfusion Reaction / Comment(s): unknown Past Psychological History: No Psychological Hx Reported Smoking Status: Never smoker Past Alcohol Use History: None Reported Past Drug Use History: None Reported - Past Family History Father Family Medical History: Myocardial Infarction ([place]) Medications and Allergies Home Medications Medication Instructions Recorded Confirmed Type Ascorbic Acid [Vitamin C] 1,000 mg PO BID 03/27/21 08/28/21 History Cholecalciferol [Vitamin D3 (25 25 mcg PO BID 03/27/21 08/28/21 History Mcg = 1000 Iu)] Multivitamins, Thera [Multivitamin 1 tab PO BID 03/27/21 08/28/21 History (formulary)] Zinc 50 mg PO BID 03/27/21 08/28/21 History Aspirin EC [Ecotrin] 650 mg PO ONCE PRN 08/28/21 08/28/21 History Allergies Allergy/AdvReac Type Severity Reaction Status Date / Time No Known Allergies Allergy Verified 08/28/21 08:37 Physical Exam Vitals: Vital Signs Temp Pulse Pulse Pulse Pulse Resp BP 08/28/21 10:41 80 86 77 08/28/21 09:50 97.6 F 78 18 08/28/21 09:27 97.8 F 77 18 112/61 08/28/21 07:51 72 18 111/75 08/28/21 07:29 98.2 F 77 18 106/66 BP BP BP Pulse Ox 08/28/21 10:41 162/92 162/93 130/79 08/28/21 09:50 115/70 97 08/28/21 09:27 97 08/28/21 07:51 96 08/28/21 07:29 98 Intake and Output 08/27/21 08/28/21 08/28/21 22:59 06:59 14:59 Other: Weight 140.614 kg GENERAL EXAM: Patient is alert and oriented and doesn't appear to be in any acute distress HEENT: Normocephalic. Normal reaction of pupils, equal size, normal range of extraocular motion. No erythema or exudates in the throat. NECK: No masses, no nuchal rigidity. CHEST: No chest wall deformity. LUNGS: Equal air entry with no crackles or wheeze. HEART: S1 and S2 normal with no audible mumurs or gallops. Regular rhythm, femorals equal on both sides.. ABDOMEN: No hepatosplenomegaly, normal bowel sounds, no guarding or rigidity. SKIN: No rashes CENTRAL NERVOUS SYSTEM: No focal deficits. EXTREMITIES: [No cyanosis, clubbing or edema. Results 08/28/21 10:51 08/28/21 07:35 Cardiac Enzymes 08/28/21 08/28/21 08/28/21 Range/Units 07:35 07:35 10:51 AST 35 (17-59) U/L Troponin I 0.014 <0.012 (0.000-0.034) ng/mL Coagulation 08/28/21 Range/Units 07:35 PT 10.4 (9.0-12.0) sec APTT 22.4 (22.0-30.0) sec CBC 08/28/21 08/28/21 Range/Units 07:35 10:51 WBC 14.3 H 11.9 H (3.8-10.6) k/uL RBC 4.95 5.06 (4.30-5.90) m/uL Hgb 15.9 16.5 (13.0-17.5) gm/dL Hct 48.6 50.7 (39.0-53.0) % Plt Count 247 212 (150-450) k/uL Comprehensive Metabolic Panel 08/28/21 Range/Units 07:35 Sodium 139 (137-145) mmol/L Potassium 5.0 (3.5-5.1) mmol/L Chloride 107 (98-107) mmol/L Carbon Dioxide 22 (22-30) mmol/L BUN 19 (9-20) mg/dL Creatinine 0.98 (0.66-1.25) mg/dL Glucose 115 H (74-99) mg/dL Calcium 9.2 (8.4-10.2) mg/dL AST 35 (17-59) U/L ALT 25 (4-49) U/L Alkaline Phosphatase 66 (38-126) U/L Total Protein 7.7 (6.3-8.2) g/dL Albumin 4.5 (3.5-5.0) g/dL Current Medications Generic Name Dose Route Start Last Admin Trade Name Freq PRN Reason Stop Dose Admin Acetaminophen 650 mg 08/28/21 08:43 Acetaminophen Tab 325 Mg Tab PO Q6HR PRN Mild Pain or Fever > 100.5 Ascorbic Acid 1,000 mg 08/28/21 21:00 Ascorbic Acid 500 Mg Tab PO BID [facility] Cholecalciferol 25 mcg 08/28/21 21:00 Cholecalciferol 25 Mcg (1000 Iu) Tablet PO BID GRISEL Famotidine 20 mg 08/28/21 21:00 Famotidine 20 Mg/2 Ml Vial IV Q12HR GRISEL Heparin Sodium (Porcine) 5,000 unit 08/28/21 21:00 Heparin Sodium,Porcine/Pf 5,000 Unit/0.5 Ml Syringe SQ Q12HR GRISEL Sodium Chloride 1,000 mls @ 75 mls/hr 08/28/21 08:45 08/28/21 09:26 Saline 0.9% IV 75 mls/hr .[id number] GRISEL Administration Naloxone HCl 0.2 mg 08/28/21 08:43 Naloxone 0.4 Mg/Ml 1 Ml Vial IV Q2M PRN Opioid Reversal Ondansetron HCl 4 mg 08/28/21 08:43 Ondansetron 4 Mg/2 Ml Vial IVP Q8HR PRN Nausea And Vomiting Zinc Sulfate 220 mg 08/28/21 21:00 Zinc Sulfate 220 Mg Cap PO BID GRISEL Intake and Output 08/27/21 08/28/21 08/28/21 22:59 06:59 14:59 Other: Weight 140.614 kg Patient Weight 08/29/21 06:59 Weight 140.614 kg 08/28/21 10:51 08/28/21 07:35 EKG Interpretations (text) normal sinus rhythm Assessment and Plan (1) Syncope Current Visit: Yes Status: Acute Code(s): R55 - SYNCOPE AND COLLAPSE SNOMED Code(s): 182763023 (2) Palpitations Current Visit: No Status: Acute Code(s): R00.2 - PALPITATIONS SNOMED Code(s): 43233971 Plan: so far workup has been negative. Check blood pressure per postural changes. Recent stress test and echo were negative. If patient's insist on going home, p atient could be discharged home with event monitor
[2021-08-28 17:24] LABS: Appearance,Urine Clear (Clear); Bilirubin,Urine Negative (Negative); Blood,Urine Negative (Negative); Color,Urine Yellow; Glucose,Urine (UA) Negative (Negative); Ketones,Urine Negative (Negative); Leukocyte Esterase,Urine Negative (Negative); Nitrite,Urine Negative (Negative); PH, Urine 6.5 (5.0-8.0); Protein,Urine Negative (Negative); Specific Gravity,Urine 1.028 (1.001-1.035); Urobilinogen,Urine <2.0 mg/dL (<2.0)
[2021-08-28] MEDS ORDERED: BISMUTH SUBSALICYLATE 4,192 MG/240 ML BOTTLE PO PRN (19:55)
[2021-08-28] MEDS: ASCORBIC ACID 500 MG TAB PO SCH (20:48)
[2021-08-28] MEDS: ZINC SULFATE 220 MG CAP PO SCH (20:48)
[2021-08-28] MEDS: FAMOTIDINE 20 MG/2 ML VIAL IV SCH (20:48)
[2021-08-28] MEDS: CHOLECALCIFEROL 25 MCG (1000 IU) TABLET PO SCH (20:48)
[2021-08-28] MEDS ORDERED: FAMOTIDINE 20 MG/2 ML VIAL IV SCH (21:00)
[2021-08-28] MEDS: HEPARIN SODIUM,PORCINE/PF 5,000 UNIT/0.5 ML SYRINGE SQ SCH (23:50)
[2021-08-29] MEDS: ASCORBIC ACID 500 MG TAB PO SCH (08:25)
[2021-08-29] MEDS: FAMOTIDINE 20 MG/2 ML VIAL IV SCH (08:25)
[2021-08-29] MEDS: ZINC SULFATE 220 MG CAP PO SCH (08:25)
[2021-08-29] MEDS: CHOLECALCIFEROL 25 MCG (1000 IU) TABLET PO SCH (08:25)
[2021-08-29] MEDS: HEPARIN SODIUM,PORCINE/PF 5,000 UNIT/0.5 ML SYRINGE SQ SCH (08:25)
[2021-08-29 08:39] VITALS: BP 122/78; PULSE 78; RESP 16; TEMP 98.5
--- NOTE | 2021-08-29 10:31 | P.PN ---
Subjective This is a 51-year-old male with no significant past medical history. He follows with Dr. Echevarria. He is admitted to the hospital with an episode of dizziness and a fall at home. There might of been loss of consciousness. Patient apparently had frontal headache and took couple of aspirins few hours before this event. When he woke up he felt he was very warm. Subsequently went to the bathroom, he had a bowel movement and had some nausea and rapid heartbeat. He checked his pulse and seemed to be very irregular. Then he became cold and sweaty. After using the bathroom. Patient was walking outside and fell lightheaded and fell to the floor. He did not feel well for about 5 minutes trying to gain his senses. His was there to assist him and he could hear her voice he then subsequently was able to get up. His daughter suggested him to go to the hospital to rule out any TIA or stroke. Since coming to the hospital, he has been feeling better. No further episodes of lightheadedness or near syncope. His EKG did not reveal any acute changes. His troponin values are within normal limits. In March 2021 patient was admitte d to the hospital with chest pain. He had an echocardiogram and stress echo which were normal. His orthostatic vital signs have been negative. His vital signs are stable. Telemetry reviewed patient is maintaining sinus mechanism with heart rates in the 70s80s no arrhythmia or acute findings noted. GENERAL: Well-appearing, well-nourished and in no acute distress. NECK: Supple without JVD or thyromegaly. LUNGS: Breath sounds clear to auscultation bilaterally. Respiration equal and unlabored. No wheezes, rales or rhonchi. HEART: Regular rate and rhythm without murmurs, rubs or gallops. S1 and S2 heard. EXTREMITIES: Normal range of motion, no edema. No clubbing or cyanosis. Peripheral pulses intact. ASSESSMENT Syncope, possibly vasovagal, unclear etiology at this time, inpatient workup has been negative Palpitations PLAN From a cardiology perspective, patient is stable to be discharged home today. Event monitor ordered, arranged and available for patient to cigar packer and picker today after discharge at [facility] outpatient office. Plan for event monitor outpatient and follow up with Dr. Echevarria Nurse Practitioner note has been reviewed, I agree with a documented findings an d plan of care. Patient was seen and examined. Objective - Vital Signs Vital signs: Vital Signs Temp 98.5 F 08/29/21 07:00 Pulse 78 08/29/21 08:00 Resp 16 08/29/21 08:00 BP 122/78 08/29/21 07:00 Pulse Ox 98 08/29/21 07:00 Intake & Output 08/28/21 08/29/21 08/29/21 18:59 06:59 18:59 Intake Total 236 240 Balance 236 240 Weight 140.614 kg Intake: Oral 236 240 Other: Voiding Method Toilet # Voids 0 1 # Bowel Movements 1 - Labs CBC & Chem 7: 08/28/21 10:51 08/28/21 07:35 Labs: Abnormal Lab Results - Last 24 Hours (Table) 08/28/21 Range/Units 10:51 WBC 11.9 H (3.8-10.6) k/uL MCV 100.1 H (80.0-100.0) fL
--- NOTE | 2021-08-29 22:45 | P.DS ---
Providers Date of admission: 08/28/21 08:43 Attending physician: Jae Fajardo MD Consults: 08/28/21 08:46 Consult Physician Routine Consulting Provider: John Wolfe Consult Reason/Comments: Syncope, chest pain Do you want consulting provider notified?: Yes Primary care physician: Ankur Neely [facility] Course: Diagnoses: Syncope, most likely vasovagal syncope related to straining and the restroom. Mild chest pressure Mild episode of diarrhea and abdominal upset, which is resolved today completely. Most likely related to mild viral gastroenteritis Mild leukocytosis, most likely reactive related to viral gastroenteritis Mildly elevated glucose, check hemoglobin A1c Hospital course: This is a pleasant 51 years old male with no significant past medical history. Presents with syncope./Presyncope Patient has some tension headache behind his eye and headache last night and he took aspirin which helped him to ease down however in the morning he was going to the restroom he felt hot and nausea and while she was trying get up from the chair he felt nauseated, sweating and his eye blacked out but he still could hear voices, next thing he was on the floor with difficulty getting up for about 5-8 minutes as patient describes. Patient has been evaluated by picking table worker. D-dimer was negative at 0.3, He had an echocardiogram and stress echo which were normal. His orthostatic vital signs have been negative. Eventually patient is scheduled for picking table worker for discharge today. However picking table worker recommended an event monitor for 30 days and follow-up with Dr. Echevarria after that and he agrees Patient is back to his baseline and today is at normal self as he describes and denies any other symptoms, no headache or dizziness or weakness or numbness. No blurred vision, no chest pain or dyspnea or change in urine or bowel habits or fever. Patient was so agar and abdomen to go home today. I suggested for him to see a neurologist as inpatient he declined and he states that he can follow- up as an outpatient although the suspicion for neurological causes for his symptoms are very low however he instructed to follow up with a neurologist in one week and he agrees Patient was cleared for discharge by picking table worker Problems and management plan were discussed with the patient and he verbalized understanding and acceptance Patient was found stable and can be discharged home however he needs follow-up as an outpatient. Patient was instructed to follow up with PCP Dr. Neely within one week and patient agrees Patient was instructed to follow up with his picking table worker Dr. Echevarria in 4 weeks and he agrees, he needs to follow up for his event monitor Also instructed to follow up with the neurologist as an outpatient in [address] Henry and Dr. Rob are suggested for him and he agrees Physical exam Gen: patient is a AAOx3, no distress CVS: S1-S2, RRR, no murmur Lungs: B/L CTA, no wheezing Abdomen: soft, no distention, no tenderness, positive bowel sounds Extremity: no leg edema or induration Time spent more than 35 minutes Patient Condition at Discharge: Stable Plan - Discharge Summary Discharge Rx Participant: No New Discharge Prescriptions: Continue Zinc 50 mg PO BID Cholecalciferol [Vitamin D3 (25 Mcg = 1000 Iu)] 25 mcg PO BID Ascorbic Acid [Vitamin C] 1,000 mg PO BID Multivitamins, Thera [Multivitamin (formulary)] 1 tab PO BID Aspirin EC [Ecotrin] 650 mg PO ONCE PRN PRN Reason: STROKE/HEART ATTACK SYMPTOMS Discharge Medication List Ascorbic Acid [Vitamin C] 1,000 mg PO BID 03/27/21 [History] Cholecalciferol [Vitamin D3 (25 Mcg = 1000 Iu)] 25 mcg PO BID 03/27/21 [History] Multivitamins, Thera [Multivitamin (formulary)] 1 tab PO BID 03/27/21 [History] Zinc 50 mg PO BID 03/27/21 [History] Aspirin EC [Ecotrin] 650 mg PO ONCE PRN 08/28/21 [History] Follow up Appointment(s)/Referral(s): Uzair Echevarria MD [STAFF PHYSICIAN] - 4 Weeks (follow up for your event monitor in 30 days) So Henry MD [Medical Doctor] - 1 Week (neurologist ) Edu Rob MD [REFERRING] - 1 Week (neurologist ) Melissa Rob MD [REFERRING] - 1 Week (neurologist ) Ankur Neely DO [Primary Care Provider] - 1-2 days (we recommend to check your blood test with your doctor incluiding your white cell count ( was high in the hospital)) Activity/Diet/Wound Care/Special Instructions: Please go to [facility] after you're discharged and hav e cardiac event monitor placed. Heart healthy diet Activity is restricted till you see your doctor Discharge Disposition: HOME SELF-CARE
== END 2021-08-29 10:16 | disposition home or self-care (01) ==
LOC: EC 07:18 → 6NMEDSUR 08:43
PROVIDERS: ADMIT Internal Medicine; ATTEND Internal Medicine
DX: R55 Syncope and collapse (principal); R07.89 Other chest pain; R00.2 Palpitations; R19.7 Diarrhea, unspecified; D72.829 Elevated white blood cell count, unspecified; R73.09 Other abnormal glucose; R10.9 Unspecified abdominal pain; R11.0 Nausea; R61 Generalized hyperhidrosis; G44.209 Tension-type headache, unspecified, not intractable; R42 Dizziness and giddiness; R00.0 Tachycardia, unspecified; I51.7 Cardiomegaly; Z20.822 Contact with and (suspected) exposure to COVID-19; Z53.29 Procedure and treatment not carried out because of patient's decision for other reasons; Z82.49 Family history of ischemic heart disease and other diseases of the circulatory system; Y92.009 Unspecified place in unspecified non-institutional (private) residence as the place of occurrence of the external cause; W18.30XA Fall on same level, unspecified, initial encounter
CPT/HCPCS: 96361 ×2; 96372; 96374; 99285; 36415; 93005; 85379; 80053; 83735; 84484; 85025; 85027; 85610; 85730; 81003; 83036; 87635; 71046; 70450; G0378 ×2; J1644

== ENCOUNTER → 2024-03-05 | Outpatient (CLI) | payer BC ==
[2024-03-05 15:16] LABS: HCT 46.2 % (39.6-50.0); HGB 15.4 g/dL (13.0-17.0); MCH 32.5 pg (27.0-32.0); MCHC 33.3 g/dL (32.0-37.0); MCV 97.5 FL (80.0-97.0); Mean Platelet Volume 11.1 FL (9.5-12.2); NRBC Per 100 WBC 0 X 10*3/uL (0.00-0.01); Platelet Count 247 X 10*3/uL (140-440); RBC 4.74 X 10*6/uL (4.40-5.60); RDW 12.4 % (11.5-14.5); WBC 5.44 X 10*3/uL (4.50-10.00)
[2024-03-05 16:25] LABS: BUN/Creat Ratio 10.27 Ratio (12.00-20.00); Blood Urea Nitrogen 11.3 mg/dL (9.0-27.0); Calcium 9.6 mg/dL (8.7-10.3); Carbon Dioxide 25.6 mmol/L (21.6-31.8); Chloride 102 mmol/L (96-109); Glucose 103 mg/dL (70-110); LDL Cholesterol,Calculated 179.1 mg/dL (0.0-131.0); Potassium 4.6 mmol/L (3.5-5.5); Sodium 141 mmol/L (135-145); T4, Free (Free Thyroxine) 1.17 ng/dL (0.80-1.80)
== END | disposition home or self-care (01) ==
LOC: LABWHC1 10:25
PROVIDERS: ATTEND Family Medicine
DX: Z12.5 Encounter for screening for malignant neoplasm of prostate (principal); R53.81 Other malaise
CPT/HCPCS: 36415; 80048; 80061; 82306; 82607; 82746; 84402; 84403; 84439; 84443; 85027